=== PATIENT | male | born 1955 | race Caucasian/White ===

== ENCOUNTER → 2021-10-30 | Outpatient (CLI) | payer BC, MEDICARE | END | disposition home or self-care (01) | LOC: Rad HDHVI 12:46 | PROVIDERS: ATTEND Internal Medicine Cardiovascular Disease | DX: I08.3 Combined rheumatic disorders of mitral, aortic and tricuspid valves (principal) | CPT/HCPCS: 93306 ==

== ENCOUNTER → 2021-11-03 | Outpatient (CLI) | payer MEDICARE ==
[~2021-11-03] MED LIST: ARIP10TA29 PO; ATOR40TA52 PO; HYDR-4798 PO; LISI-275 PO; MAGN400T40 PO; METO-158 PO; RIVA20TA PO; SOTA80TA PO; VENL150T26 PO; ZOLP10TA6 PO
== END | disposition home or self-care (01) ==
LOC: Rad HDHVI 09:06
PROVIDERS: ATTEND Internal Medicine Cardiovascular Disease
DX: M71.22 Synovial cyst of popliteal space [Baker], left knee (principal); M79.669 Pain in unspecified lower leg
CPT/HCPCS: 93970

== ENCOUNTER → 2021-11-06 | Outpatient (CLI) | payer MEDICARE ==
[~2021-11-06] VITALS: Ht 193 cm; Wt 104.3 kg
[~2021-11-06] MED LIST changes: +ADENOSINE 88 MG in GIVE UN-DILUTED 0 ML IV ONE; +ADENOSINE 90 MG/30 ML INJ IV ONE; -ARIP10TA29 PO; -ATOR40TA52 PO; -HYDR-4798 PO; -LISI-275 PO; -MAGN400T40 PO; -METO-158 PO; -RIVA20TA PO; -SOTA80TA PO; -VENL150T26 PO; -ZOLP10TA6 PO
== END | disposition home or self-care (01) ==
LOC: Rad HDHVI 08:43
PROVIDERS: ATTEND Internal Medicine Cardiovascular Disease
DX: I10 Essential (primary) hypertension (principal); R07.9 Chest pain, unspecified; I48.20 Chronic atrial fibrillation, unspecified; E78.00 Pure hypercholesterolemia, unspecified; I25.2 Old myocardial infarction; Z95.1 Presence of aortocoronary bypass graft; Z82.49 Family history of ischemic heart disease and other diseases of the circulatory system; R06.02 Shortness of breath; R42 Dizziness and giddiness
CPT/HCPCS: 78452; 93005; 96374; 96375; A9500; J0153

== ENCOUNTER → 2021-12-04 | Outpatient (CLI) | payer MEDICARE ==
[~2021-12-04] MED LIST changes: -ADENOSINE 88 MG in GIVE UN-DILUTED 0 ML IV ONE; -ADENOSINE 90 MG/30 ML INJ IV ONE; +ARIP10TA29 PO; +ATOR40TA52 PO; +HYDR-4798 PO; +LISI-275 PO; +MAGN400T40 PO; +METO-158 PO; +RIVA20TA PO; +SOTA80TA PO; +VENL150T26 PO; +ZOLP10TA6 PO
[2021-12-04 09:22] VITALS: BP 146/110
[2021-12-04 09:58] VITALS: BP 151/106
[2021-12-04 11:28] LABS: Basophils # (auto) 0 10 ^3/uL (0-0.2); Basophils % (auto) 0.4 % (0.0-2.0); Eosinophils # (auto) 0.1 10 ^3/uL (0-0.8); Eosinophils % (auto) 1.3 % (0.0-7.0); Hematocrit 46.4 % (41.0-53.0); Hemoglobin 15.5 g/dL (13.5-17.5); Lymphocytes # (auto) 1.9 10 ^3/uL (0.4-5.4); Lymphocytes % (auto) 21.6 % (10.0-50.0); Mean Corpuscular Hemoglobin 29.8 pg (28.0-32.0); Mean Corpuscular Hgb Conc. 33.5 g/dL (32.0-36.0); Monocytes # (auto) 0.5 10 ^3/uL (0-1.3); Monocytes % (auto) 5.2 % (0.0-12.0); Neutrophils # (auto) 6.4 10 ^3/uL (1.6-8.6); Neutrophils % (auto) 71.5 % (37.0-80.0); Red Blood Cells 5.21 10^6/uL (4.5-5.90); Red Cell Distribution Width 14.2 % (11.8-14.3)
[2021-12-04 11:42] LABS: Potassium 4.4 mmol/L (3.5-5.1)
[2021-12-04 11:45] LABS: INR 1.09 (0.9-1.15); Partial Thromboplastin Time 33.5 sec (23.6-33.0)
[2021-12-04 11:47] LABS: Calcium 9.4 mg/dL (8.5-10.1)
== END | disposition home or self-care (01) ==
LOC: Rad HDHVI 09:05
PROVIDERS: ATTEND Internal Medicine Cardiovascular Disease
DX: Z01.818 Encounter for other preprocedural examination (principal); I48.91 Unspecified atrial fibrillation; I49.3 Ventricular premature depolarization; R94.31 Abnormal electrocardiogram [ECG] [EKG]; R42 Dizziness and giddiness
CPT/HCPCS: 36415; 80048; 85025; 85610; 85730; 93005; G0463

== ENCOUNTER 2021-12-07 06:41 | Day surgery (SDC) | payer MEDICARE ==
[2021-12-07] VITALS (8 sets, daily range): BP systolic 116–143; BP diastolic 78–104
[~2021-12-07] VITALS: Ht 193 cm; Wt 104.3 kg
[2021-12-07] MEDS ORDERED: IOHEXOL 350 MG/ML 100ML IJ ONE (07:50)
[2021-12-07] MEDS ORDERED: LIDOCAINE 2%HCL (LOCAL ANESTH.) INJ 20ML MDV ONE (07:50)
[2021-12-07] MEDS ORDERED: LIDOCAINE VISCOUS 2% 15ML UD PO ONE (08:45)
[2021-12-07] MEDS ORDERED: diphenhdrAMINE HCL 50 MG/1 ML VL IV ONE (08:45)
[2021-12-07] MEDS ORDERED: MIDAZOLAM HCL 2MG/2ML 2ml VIAL (1mg/ml) IV ONE (08:45)
[2021-12-07] MEDS ORDERED: fentaNYL CITRATE 100 MCG/2 ML VL IV ONE (08:45)
[2021-12-07] MEDS ORDERED: ANGIOMAX 250 MG VIAL IV ONE (08:57)
[2021-12-07] MEDS ORDERED: SODIUM CHL 0.9% 0 ML ONE (08:57)
[2021-12-07] MEDS ORDERED: HYDROcodone-ACET 5/325MG TAB ONE (12:00)
== END 2021-12-07 13:35 | disposition home or self-care (01) ==
LOC: CATH 06:41
PROVIDERS: ATTEND Internal Medicine Cardiovascular Disease
DX: I48.91 Unspecified atrial fibrillation (principal); I25.10 Atherosclerotic heart disease of native coronary artery without angina pectoris; I08.0 Rheumatic disorders of both mitral and aortic valves; I71.9 Aortic aneurysm of unspecified site, without rupture; I50.9 Heart failure, unspecified; Z95.5 Presence of coronary angioplasty implant and graft; Z20.822 Contact with and (suspected) exposure to COVID-19
CPT/HCPCS: 93312; 93456; C1751; C1760; C1894; J1644; J2250; J3010; J7030; Q9967; U0003; 99152; 99153

== ENCOUNTER 2022-01-01 10:49 | Outpatient (CLI) | payer MEDICARE ==
[~2022-01-01] VITALS: Ht 193 cm; Wt 99.8 kg
[2022-01-01] MEDS ORDERED: SOTA80TA PO (16:26)
== END 2022-01-01 11:00 | disposition home or self-care (01) ==
LOC: LAB 10:49 → EDSTATUS 01-04 14:02
PROVIDERS: ATTEND Internal Medicine Cardiovascular Disease
DX: U07.1 COVID-19 (principal)

== ENCOUNTER → 2022-01-01 | Outpatient (CLI) | payer MEDICARE ==
[2022-01-01 08:56] VITALS: BP 129/105
[2022-01-01 09:17] VITALS: BP 141/98
[2022-01-01 11:59] LABS: Basophils # (auto) 0.1 10 ^3/uL (0-0.2); Basophils % (auto) 0.7 % (0.0-2.0); Eosinophils # (auto) 0.1 10 ^3/uL (0-0.8); Hematocrit 48.2 % (41.0-53.0); Hemoglobin 16.1 g/dL (13.5-17.5); Mean Corpuscular Hemoglobin 29.4 pg (28.0-32.0); Mean Corpuscular Hgb Conc. 33.5 g/dL (32.0-36.0); Mean Corpuscular Volume 87.8 fL (80.0-100.0); Monocytes # (auto) 0.6 10 ^3/uL (0-1.3); Monocytes % (auto) 7.6 % (0.0-12.0); Neutrophils # (auto) 5.1 10 ^3/uL (1.6-8.6); Neutrophils % (auto) 64.7 % (37.0-80.0); Nucleated Red Blood Cells % 0.1 %; Red Blood Cells 5.49 10^6/uL (4.5-5.90); White Blood Cell 7.9 10^3/uL (4.4-10.8)
[2022-01-01 12:08] LABS: INR 1.07 (0.9-1.15); Partial Thromboplastin Time 29.4 sec (23.6-33.0)
[2022-01-01 13:00] LABS: BUN/Creatinine Ratio 14.1; Calcium 9.9 mg/dL (8.5-10.1); Potassium 4.3 mmol/L (3.5-5.1)
== END | disposition home or self-care (01) ==
LOC: Rad HDHVI 08:04
PROVIDERS: ATTEND Internal Medicine Cardiovascular Disease
DX: Z01.812 Encounter for preprocedural laboratory examination (principal); I70.0 Atherosclerosis of aorta; M85.88 Other specified disorders of bone density and structure, other site; I48.91 Unspecified atrial fibrillation; R06.02 Shortness of breath; J90 Pleural effusion, not elsewhere classified
CPT/HCPCS: 36415; 71046; 80048; 85025; 85610; 85730; 93005; 93925; G0463

== ENCOUNTER → 2022-01-22 | Outpatient (CLI) | payer MEDICARE ==
[2022-01-22 11:39] LABS: Basophils # (auto) 0.1 10 ^3/uL (0-0.2); Basophils % (auto) 1.3 % (0.0-2.0); Eosinophils # (auto) 0.1 10 ^3/uL (0-0.8); Eosinophils % (auto) 1.5 % (0.0-7.0); Hematocrit 47.4 % (41.0-53.0); Hemoglobin 15.9 g/dL (13.5-17.5); Lymphocytes # (auto) 1.5 10 ^3/uL (0.4-5.4); Mean Corpuscular Hemoglobin 29.6 pg (28.0-32.0); Mean Corpuscular Hgb Conc. 33.6 g/dL (32.0-36.0); Mean Corpuscular Volume 88.3 fL (80.0-100.0); Monocytes # (auto) 0.3 10 ^3/uL (0-1.3); Monocytes % (auto) 4.6 % (0.0-12.0); Neutrophils # (auto) 4.8 10 ^3/uL (1.6-8.6); Neutrophils % (auto) 70.6 % (37.0-80.0); Nucleated Red Blood Cells % 0.3 %; Red Blood Cells 5.37 10^6/uL (4.5-5.90); Red Cell Distribution Width 15.5 % (11.8-14.3); White Blood Cell 6.8 10^3/uL (4.4-10.8)
[2022-01-22 11:54] LABS: INR 1.06 (0.9-1.15); Partial Thromboplastin Time 29.5 sec (23.6-33.0)
[2022-01-22 12:17] LABS: Potassium 4.8 mmol/L (3.5-5.1)
[2022-01-22 12:21] LABS: Calcium 9.3 mg/dL (8.5-10.1)
== END | disposition home or self-care (01) ==
LOC: Rad HDHVI 09:07
PROVIDERS: ATTEND Internal Medicine Cardiovascular Disease
DX: Z01.812 Encounter for preprocedural laboratory examination (principal); I48.91 Unspecified atrial fibrillation
CPT/HCPCS: 36415; 80048; 85025; 85610; 85730

== ENCOUNTER 2022-01-25 06:58 | Day surgery (SDC) | payer MEDICARE ==
[~2022-01-25] VITALS: Ht 193 cm; Wt 99.8 kg
[~2022-01-25 06:58] MED LIST changes: -HYDR-4798 PO; -METO-158 PO
[2022-01-25] MEDS ORDERED: VANCOMYCIN HCL 1000 MG VL ONE (09:21)
[2022-01-25] MEDS ORDERED: fentaNYL CITRATE 100 MCG/2 ML VL ONE (09:22)
[2022-01-25] MEDS ORDERED: MIDAZOLAM HCL 2MG/2ML 2ml VIAL (1mg/ml) ONE (09:22)
[2022-01-25] MEDS ORDERED: VANCOMYCIN 1GM/250ML 250 ML IV ONE (09:22)
[2022-01-25] MEDS ORDERED: LIDOCAINE 2%HCL (LOCAL ANESTH.) INJ 10ml MDV ONE (09:44)
[2022-01-25] MEDS ORDERED: IOHEXOL 350 MG/ML 100ML IJ ONE (09:44)
[2022-01-25] MEDS ORDERED: diphenhdrAMINE HCL 50 MG/1 ML VL ONE (10:38)
== END 2022-01-25 13:23 | disposition home or self-care (01) ==
LOC: CATH 06:58
PROVIDERS: ATTEND Internal Medicine Cardiovascular Disease
DX: I48.20 Chronic atrial fibrillation, unspecified (principal); I50.23 Acute on chronic systolic (congestive) heart failure; I25.5 Ischemic cardiomyopathy; I25.10 Atherosclerotic heart disease of native coronary artery without angina pectoris; I11.0 Hypertensive heart disease with heart failure; I50.20 Unspecified systolic (congestive) heart failure; Z95.5 Presence of coronary angioplasty implant and graft; E78.5 Hyperlipidemia, unspecified; Z82.49 Family history of ischemic heart disease and other diseases of the circulatory system; Z79.02 Long term (current) use of antithrombotics/antiplatelets; Z20.822 Contact with and (suspected) exposure to COVID-19
CPT/HCPCS: 33249; 71045; 92961; C1769; C1887; C1892; C1895; C1898; J1200; J2001; J2250; J3010; J3370; J7030; Q9967; U0003; 93005; 99152; 99153; C1882

== ENCOUNTER → 2022-02-22 | Outpatient (CLI) | payer BC, MEDICARE | END | disposition home or self-care (01) | LOC: Rad HDHVI 10:12 | PROVIDERS: ATTEND Internal Medicine Cardiovascular Disease | DX: I08.3 Combined rheumatic disorders of mitral, aortic and tricuspid valves (principal) | CPT/HCPCS: 93306 ==

== ENCOUNTER → 2022-06-12 | Outpatient (CLI) | payer BC, MEDICARE ==
[~2022-06-12] MED LIST changes: +AMIO400T3 PO; +EMPA1TAB3 PO; +FURO20TA3 PO; +METO25TA5 PO; +POTA1TAB61 PO; +SODIUM CHLORIDE 0.9% 500 ML IV ONE
[2022-06-12 10:37] VITALS: BP 88/56
[2022-06-12 11:30] VITALS: BP 103/63
[2022-06-12 12:15] VITALS: BP 117/80
[2022-06-12 13:09] LABS: Calcium 8.9 mg/dL (8.5-10.1); Potassium 4.7 mmol/L (3.5-5.1)
[2022-06-12 13:12] LABS: BUN/Creatinine Ratio 22.5
[2022-06-12 13:22] LABS: Basophils # (auto) 0 10 ^3/uL (0-0.2); Basophils % (auto) 0.5 % (0.0-2.0); Eosinophils # (auto) 0.1 10 ^3/uL (0-0.8); Eosinophils % (auto) 1.4 % (0.0-7.0); Lymphocytes # (auto) 1.6 10 ^3/uL (0.4-5.4); Mean Corpuscular Hemoglobin 29.3 pg (28.0-32.0); Mean Corpuscular Hgb Conc. 32.7 g/dL (32.0-36.0); Mean Corpuscular Volume 89.8 fL (80.0-100.0); Monocytes # (auto) 0.5 10 ^3/uL (0-1.3); Monocytes % (auto) 7.3 % (0.0-12.0); Neutrophils # (auto) 5.2 10 ^3/uL (1.6-8.6); Neutrophils % (auto) 69.8 % (37.0-80.0); Nucleated Red Blood Cells % 0.1 %; Red Blood Cells 5.12 10^6/uL (4.5-5.90); Red Cell Distribution Width 15.3 % (11.8-14.3); White Blood Cell 7.4 10^3/uL (4.4-10.8)
[2022-06-12 13:40] VITALS: BP 115/88
[2022-06-12 14:29] LABS: INR 1.33 (0.9-1.15); Partial Thromboplastin Time 45.3 sec (24.6-33.4)
== END | disposition home or self-care (01) ==
LOC: CHF HDHVI 10:13
PROVIDERS: ATTEND Internal Medicine Cardiovascular Disease
DX: R79.1 Abnormal coagulation profile (principal); I11.0 Hypertensive heart disease with heart failure; I50.23 Acute on chronic systolic (congestive) heart failure; I48.20 Chronic atrial fibrillation, unspecified; I95.9 Hypotension, unspecified; Z95.810 Presence of automatic (implantable) cardiac defibrillator
CPT/HCPCS: 36415; 80048; 85025; 85610; 85730; 93005; 96360; 96361; G0463; J7040

== ENCOUNTER 2022-06-13 11:59 | Day surgery (SDC) | payer BC, MEDICARE ==
[~2022-06-13] VITALS: Ht 193 cm; Wt 99.8 kg
[~2022-06-13 11:59] MED LIST changes: -SODIUM CHLORIDE 0.9% 500 ML IV ONE; -SOTA80TA PO; -ZOLP10TA6 PO
[2022-06-13] MEDS ORDERED: MIDAZOLAM HCL 2MG/2ML 2ml VIAL (1mg/ml) IV ONE (12:45)
== END 2022-06-13 17:15 | disposition home or self-care (01) ==
LOC: CATH 11:59
PROVIDERS: ATTEND Internal Medicine Cardiovascular Disease
DX: I48.91 Unspecified atrial fibrillation (principal); I49.5 Sick sinus syndrome; I11.0 Hypertensive heart disease with heart failure; I50.9 Heart failure, unspecified; I25.5 Ischemic cardiomyopathy; Z95.810 Presence of automatic (implantable) cardiac defibrillator; Z20.822 Contact with and (suspected) exposure to COVID-19
CPT/HCPCS: 92961; J2250; U0003